=== PATIENT | male | born 1985 | race Caucasian/White ===

== ENCOUNTER 2019-11-22 14:59 | Emergency (ER) | payer SELFPAY ==
--- NOTE | 2019-11-22 16:44 | EDM.PDOC ---
ED HPI GENERAL MEDICAL PROBLEM - General Chief Complaint: Respiratory Problem Stated Complaint: COUGH AND MIGRAINE Time Seen by Provider: 11/22/19 15:01 Source of Information: Reports: Patient History Limitations: Reports: No Limitations - History of Present Illness INITIAL COMMENTS - FREE TEXT/NARRATIVE: HISTORY AND PHYSICAL: History of present illness: Patient is a 34-year-old male who presents to the emergency room with complaints of flulike symptoms, which includes body aches and headache. He states many people at work have been sick with the flu and he had missed yesterday from work because he was not feeling well. He states he is starting to feel better today and "just need a note to return to work". Patient denies any fever, chills, neck pain/stiffness change in vision, syncope or near syncope. Denies any chest pain, back pain, shortness of breath or cough. Denies any GI or symptoms. Patient has been eating and drinking appropriately. Review of systems: As per history of present illness and below otherwise all systems reviewed and negative. Past medical history: As per history of present illness and as reviewed below otherwise noncontributory. Surgical history: As per history of present illness and as reviewed below otherwise noncontributory. Social history: See social history for further information Family history: As per history of present illness and as reviewed below otherwise noncontributory. Physical exam: General: Well-developed and well-nourished 34-year-old male. Alert and oriented. Nontoxic-appearing and in no acute distress. HEENT: Atraumatic, normocephalic, pupils equal and reactive bilaterally, negative for conjunctival pallor or scleral icterus, mucous membranes moist, TMs normal bilaterally, throat clear, neck supple, nontender, trachea midline. No drooling or trismus noted. No meningeal signs. No hot potato voice noted. Lungs: Clear to auscultation, breath sounds equal bilaterally, chest nontender. Heart: S1S2, regular rate and rhythm without overt murmur Abdomen: Soft, nondistended, nontender. Skin: Intact, warm, dry. No lesions or rashes noted. Extremities: Atraumatic, moves all extremities per self without difficulty or deficits, negative for cords or calf pain. Neurovascular unremarkable. Neuro: Awake, alert, oriented. Cranial nerves II through XII unremarkable. Cerebellum unremarkable. Motor and sensory unremarkable throughout. Exam nonfocal. Notes: Patient declines wanting any diagnostics. Physical exam is normal. Supportive care measures were reviewed and discussed. Voices understanding and is agreeable to plan of care. Denies any further questions or concerns at this time. Diagnostics: Declines Therapeutics: None Prescription: None Impression: Viral illness Plan: 1. Please use Tylenol and/or Ibuprofen as needed for pain and fever management. 2. Get plenty of Rest. Encourage fluids to prevent dehydration. 3. Please follow up with your primary care provider. Return to the ED as needed as discussed. Definitive disposition and diagnosis as appropriate pending reevaluation and review of above. - Related Data Allergies Allergy/AdvReac Type Severity Reaction Status Date / Time No Known Allergies Allergy Verified 10/22/18 14:33 Home Meds: Home Meds . [No Known Home Meds] 08/13/16 [History] Past Medical History HEENT History: Reports: None Cardiovascular History: Reports: None Respiratory History: Reports: None Neurological History: Reports: None Psychiatric History: Reports: None Dermatologic History: Reports: None - Infectious Disease History Infectious Disease History: Reports: None - Past Surgical History Head Surgeries/Procedures: Reports: None HEENT Surgical History: Reports: None, Other (See Below) GI Surgical History: Reports: Appendectomy Social & Family History - Family History Family Medical History: Noncontributory - Caffeine Use Caffeine Use: Reports: Coffee, Energy Drinks ED ROS GENERAL - Review of Systems Review Of Systems: Comprehensive ROS is negative, except as noted in HPI. ED EXAM, GENERAL - Physical Exam Exam: See Below (See dictation) Departure - Departure Time of Disposition: 16:43 Disposition: Home, Self-Care 01 Clinical Impression: Viral illness - Discharge Information Instructions: Viral Respiratory Infection, [id number] Referrals: PCP,None [Primary Care Provider] - Forms: ED Department Discharge Additional Instructions: The following information is given to patients seen in the emergency department who are being discharged to home. This information is to outline your options for follow-up care. We provide all patients seen in our emergency department with a follow-up referral. The need for follow-up, as well as the timing and circumstances, are variable depending upon the specifics of your emergency department visit. If you don't have a primary care physician on staff, we will provide you with a referral. We always advise you to contact your personal physician following an emergency department visit to inform them of the circumstance of the visit and for follow-up with them and/or the need for any referrals to a consulting specialist. The emergency department will also refer you to a specialist when appropriate. This referral assures that you have the opportunity for follow-up care with a specialist. All of these measure are taken in an effort to provide you with optimal care, which includes your follow-up. Under all circumstances we always encourage you to contact your private physician who remains a resource for coordinating your care. When calling for follow-up care, please make the office aware that this follow-up is from your recent emergency room visit. If for any reason you are refused follow-up, please contact the [facility] Emergency Department at and asked to speak to the emergency department charge nurse. [facility] [address] [place] [address] [place] [address] 1. Please use Tylenol and/or Ibuprofen as needed for pain and fever management. 2. Get plenty of Rest. Encourage fluids to prevent dehydration. 3. Please follow up with your primary care provider. Return to the ED as needed as discussed. Sepsis Event Note - Focused Exam Date Exam was Performed: 11/22/19 Time Exam was Performed: 16:45
[2019-11-22 17:03] VITALS: BP 122/80; PULSE 106
== END 2019-11-22 16:55 | disposition home or self-care (01) ==
LOC: MW.ED 14:59
DX: B34.9 Viral infection, unspecified (principal); Z90.49 Acquired absence of other specified parts of digestive tract
CPT/HCPCS: 99284

== ENCOUNTER 2020-01-26 21:49 | Emergency (ER) | payer SELFPAY ==
[2020-01-26 22:04] VITALS: BP 117/74; PULSE 108
--- NOTE | 2020-01-26 22:06 | EDM.PDOC ---
ED HPI GENERAL MEDICAL PROBLEM - General Chief Complaint: General Stated Complaint: MEDICAL CLEARANCE Time Seen by Provider: 01/26/20 21:51 Source of Information: Reports: Patient, Police History Limitations: Reports: Intoxication - History of Present Illness INITIAL COMMENTS - FREE TEXT/NARRATIVE: Patient is a 34-year-old male who was picked up by police and brought in by police for being intoxicated. Patient acknowledges drinking "a lot" today. He denies using any other drugs. He is not nauseous is been no vomiting or diarrhea. He denies any headache or head injury or any other trauma. Denies any past medical history. he denies using any other drugs. Patient and please officers have no other concerns. Patient denies any suicidal or homicidal ideation. Onset: Today Associated Symptoms: Reports: No Other Symptoms - Related Data Allergies Allergy/AdvReac Type Severity Reaction Status Date / Time No Known Allergies Allergy Verified 11/22/19 16:45 Home Meds: Home Meds . [No Known Home Meds] 08/13/16 [History] Past Medical History HEENT History: Reports: None Cardiovascular History: Reports: None Respiratory History: Reports: None Neurological History: Reports: None Psychiatric History: Reports: None Dermatologic History: Reports: None - Infectious Disease History Infectious Disease History: Reports: None - Past Surgical History Head Surgeries/Procedures: Reports: None HEENT Surgical History: Reports: None, Other (See Below) GI Surgical History: Reports: Appendectomy Social & Family History - Family History Family Medical History: Noncontributory - Caffeine Use Caffeine Use: Reports: None ED ROS GENERAL - Review of Systems Review Of Systems: Comprehensive ROS is negative, except as noted in HPI. ED EXAM, GENERAL - Physical Exam Exam: See Below Free Text/Narrative:: Exam: See Below Exam Limited By: Intoxication. No Limitations Head: Atraumatic Neck: Normal Inspection. No: Carotid Bruit, Lymphadenopathy Respiratory/Chest: No Respiratory Distress, Lungs Clear, Normal Breath Sounds, No Accessory Muscle Use. No: Chest Non-Tender Cardiovascular: Normal Peripheral Pulses, Regular Rate, Rhythm, No Edema, No JVD GI/Abdominal: Normal Bowel Sounds, Tender. No: Non-Tender, Splenomegaly Back Exam: Normal Inspection. No: CVA Tenderness Extremities: Normal Inspection. No: No Pedal Edema Neurological: Alert, Oriented, Normal Cognition Psychiatric: Normal Affect Skin Exam: Warm Lymphatic: No Adenopathy General Appearance: Alert, No Apparent Distress. No: Lethargic, Obtunded Course - Vital Signs Text/Narrative:: Patient is medically cleared for incarceration. Departure - Departure Time of Disposition: 22:04 Disposition: Home, Self-Care 01 Condition: Good Clinical Impression: Medical clearance for incarceration, Alcohol intoxication - Discharge Information Instructions: Alcohol Use Disorder Referrals: PCP,None [Primary Care Provider] - Additional Instructions: The following information is given to patients seen in the emergency department who are being discharged to home. This information is to outline your options for follow-up care. We provide all patients seen in our emergency department with a follow-up referral. The need for follow-up, as well as the timing and circumstances, are variable depending upon the specifics of your emergency department visit. If you don't have a primary care physician on staff, we will provide you with a referral. We always advise you to contact your personal physician following an emergency department visit to inform them of the circumstance of the visit and for follow-up with them and/or the need for any referrals to a consulting specialist. The emergency department will also refer you to a specialist when appropriate. This referral assures that you have the opportunity for follow-up care with a specialist. All of these measure are taken in an effort to provide you with optimal care, which includes your follow-up. Under all circumstances we always encourage you to contact your private physician who remains a resource for coordinating your care. When calling for follow-up care, please make the office aware that this follow-up is from your recent emergency room visit. If for any reason you are refused follow-up, please contact the [facility] Emergency Department at and asked to speak to the emergency department charge nurse. Care Plan Goals: Drink alcohol only in moderation. Go to Alcoholics Anonymous or detox if indicated. Return to emergency department if symptoms are worse.
== END 2020-01-26 22:15 | disposition home or self-care (01) ==
LOC: MW.ED 21:49
DX: F10.129 Alcohol abuse with intoxication, unspecified (principal)
CPT/HCPCS: 99284

== ENCOUNTER 2020-02-13 11:48 | Emergency (ER) | payer SELFPAY ==
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
== END 2020-02-13 12:40 | disposition left against medical advice (07) ==
LOC: MW.ED 11:48
CPT/HCPCS: 99282; 99283

== ENCOUNTER 2020-04-14 16:27 | Emergency (ER) | payer SELFPAY ==
[2020-04-14] MEDS ORDERED: Sodium Chloride 0.9% 1,000 ML IV ONE (16:30)
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
[2020-04-14 18:30] VITALS: BP 121/91; PULSE 115
== END 2020-04-14 18:17 | disposition home or self-care (01) ==
LOC: MW.ED 16:27
DX: F10.120 Alcohol abuse with intoxication, uncomplicated (principal)
CPT/HCPCS: 96360; 99284; J7030

== ENCOUNTER 2020-06-02 11:27 | Emergency (ER) | payer SELFPAY ==
[2020-06-02 11:48] VITALS: BP 130/97; PULSE 101
[2020-06-02] MEDS ORDERED: Bacitracin Oint 1 GM U/D Packet TOP ONE (11:53)
[2020-06-02] MEDS ORDERED: Diphtheria,Pertussis(Acell),Tetanus Vaccine 0.5 ML Syringe IM ONE (11:53)
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
== END 2020-06-02 12:07 ==
LOC: MW.ED 11:27
DX: L55.9 Sunburn, unspecified (principal); Z91.013 Allergy to seafood
CPT/HCPCS: 82962; 99282; 99283

== ENCOUNTER 2021-04-05 14:40 | Emergency (ER) | payer SELFPAY ==
[2021-04-05 15:22] VITALS: PULSE 90
[2021-04-05] MEDS ORDERED: Ketorolac 60 MG/2 ML SDV IM ONE (15:30)
--- NOTE | 2021-04-05 16:04 | CR ---
For Patients: As a result of the Century Cures Act, medical imaging exams and procedure reports are released immediately into your electronic medical record. You may view this report before your referring provider. If you have questions, please contact your health care provider. Indication: Trauma, pain and fall Comparison: None available. Technique: AP, Lateral, and Oblique views left foot were obtained Findings: There is no displaced fracture or dislocation. Hammertoe deformities of the 2nd through 5th digits are appreciated. Degenerative changes of the proximal interphalangeal joints are appreciated. There is moderate dorsal soft tissue swelling. Impression: There is moderate dorsal soft tissue swelling and minimal degenerative changes of the interphalangeal joints. Incidental note is made of mild to moderate hindfoot edema. Follow-up with dedicated ankle views if there is concern for hindfoot or ankle injury. Dictated by Joshua Portillo MD @ 04/05/2021 4:02:[address] Joshua Portillo @ Apr 05 2021 4:02PM
--- NOTE | 2021-04-05 16:33 | EDM.PDOC ---
ED HPI GENERAL MEDICAL PROBLEM - General Chief Complaint: Lower Extremity Injury/Pain Stated Complaint: LEFT FOOT PAIN Time Seen by Provider: 04/05/21 14:48 Source of Information: Reports: Patient History Limitations: Reports: No Limitations - History of Present Illness INITIAL COMMENTS - FREE TEXT/NARRATIVE: HISTORY AND PHYSICAL: History of present illness: The patient is a 35-year-old male who presents to the emergency room after externally rolling his ankle 3 days ago. The patient states that he has been walking on his foot for 3 days but today the pain became unbearable. The patient treated his ankle with ice or heat for any aqmy-hqv-ltrvmal pain medicine. The patient has never had anything like this before. He states that having his leg elevated as it felt better. Touch or weightbearing increases pain. Patient denies any fever, chills, headache, change in vision, syncope or near syncope. Denies any chest pain, back pain, shortness of breath or cough. Denies any abdominal pain, nausea, vomiting, diarrhea, constipation or dysuria. Has not noted any blood in urine or stool. Patient has been eating and drinking appropriately. Review of systems: As per history of present illness and below otherwise all systems reviewed and negative. Past medical history: As per history of present illness and as reviewed below otherwise noncontributory. Surgical history: As per history of present illness and as reviewed below otherwise noncontributory. Social history: See social history for further information Family history: As per history of present illness and as reviewed below otherwise noncontributory. Physical exam: General: Well developed and well nourished. Alert and orientated x 3. Nontoxic in appearance and in no acute distress. Vital signs are stable and have been reviewed by me. Nursing notes were reviewed. HEENT: Atraumatic, normocephalic, pupils equal and reactive bilaterally, negative for conjunctival pallor or scleral icterus, mucous membranes moist, TMs normal bilaterally, throat clear, neck supple, nontender, trachea midline. No drooling or trismus noted. No meningeal signs. No hot potato voice noted. Lungs: Clear to auscultation bilaterally. No wheezes, rales, or rhonchi. Chest nontender. Normal work of breathing, no accessory muscles used. Heart: S1S2, regular rate and rhythm without overt murmur, gallops, or rubs. No JVD. No peripheral edema Abdomen: Soft, nondistended, nontender. Normoactive bowel sounds. Negative for masses or costovertebral tenderness. Skin: Intact, warm, dry. Left foot with purple discoloration lateral area and on all 5 toes. No open area noted. No blisters noted Hematologic: No petechiae or purpra. Mucosa appropriate color and normal nail bed color and refill. Extremities: Left foot edematous with bruising. Tender to touch. Moves all other extremities per self without difficulty or deficits, negative for cords or calf pain. Neurovascular unremarkable. Neuro: Awake, alert, oriented. Cranial nerves II through XII unremarkable. Cerebellum unremarkable. Motor and sensory unremarkable throughout. Exam nonfocal. Psychiatric: Mood and affect are appropriate. Normal thought process. Answering questions appropriately. Notes: *This patient was seen and evaluated during the 2019 SARS-CoV-2 novel coronavirus pandemic period. Community viral transmission is ongoing at time of this encounter and the emergency department is operating under pandemic response procedures. Stated above the patient presents to the emergency room with complaints of left foot/ankle pain after rolling his ankle externally 3 days ago. Over the 3 days the pain has been progressively worse. I will get a foot and ankle x-ray. I will treat his pain with Toradol injection. Left foot x-ray radiologist impression:There is moderate dorsal soft tissue swelling and minimal degenerative changes of the interphalangeal joints. Incidental note is made of mild to moderate hindfoot edema. Follow-up with dedicated ankle views if there is concern for hindfoot or ankle injury. Left ankle x-ray per radiologist:mild lateral soft tissue swelling. No acute fracture or subluxation. I have ordered a ankle stirrup for the patient to wear for 7 days or until ankle feels better. I explained the results to the patient and he has opted for the ankle stirrup and to go back to work. He states he just 1 to make sure it was not broken. I have talked with the patient about today's findings, in addition to providing specific details for plan of care. Reassessment at the time of disposition demonstrates that the patient is in no acute distress. The patient is stable for discharge, counseling was provided and we discussed in great detail signs and symptoms that would prompt them to return to the Emergency Department. Medication, follow up and supportive care measures were reviewed and discussed. Voices understanding and is agreeable to plan of care. Denies any further questions or concerns at this time. Diagnostics: Left foot and ankle x-ray Therapeutics: Toradol 60 IM, Aircast ankle stirrup for left ankle for joint stabilization and comfort for the patient to wear for 7 days or until the ankle feels better. Impression: Left ankle sprain Plan: 1. You were evaluated today on an emergent basis. Your left ankle pain and discoloration was evaluated by x-rays were negative for fracture. You have sprained your ankle. You will need to wear the Aircast ankle stirrup for 7 days or until your ankle feels better. If needed you can follow-up with your primary care provider. You can return to work today. Use Motrin 800 mg every 8 hours for pain. You can apply ice or heat at this point whichever one feels better. 2. You can alternate Tylenol and ibuprofen as needed for pain and fever m anagement. 3. We encourage you to follow up with your primary care provider and/or recommended specialist in the next few days for re-evaluation and further care/management. 4. If your symptoms should worsen, new symptoms develop or any of the signs and symptoms we discussed should arise please return to the emergency room or call 911 (if needed). Definitive disposition and diagnosis as appropriate pending reevaluation and review of above. Left ankle Pain Score (Numeric/FACES): 7 - Related Data Allergies Allergy/AdvReac Type Severity Reaction Status Date / Time shellfish derived Allergy Other Verified 04/05/21 15:18 Home Meds: Home Meds . [No Known Home Meds] 08/13/16 [History] Past Medical History HEENT History: Reports: None Cardiovascular History: Reports: None Respiratory History: Reports: None Neurological History: Reports: None Psychiatric History: Reports: None Other Psychiatric History: unable to assess Other Hematologic History: unable to assess Other Immunologic History: unable to assess Dermatologic History: Reports: None - Infectious Disease History Infectious Disease History: Reports: None Other Infectious Disease History: unknown - Past Surgical History Head Surgeries/Procedures: Reports: None HEENT Surgical History: Reports: None, Other (See Below) GI Surgical History: Reports: Appendectomy Social & Family History - Family History Family Medical History: No Pertinent Family History Other Dermatologic Family History: unable to assess - Tobacco Use Tobacco Use Status *Q: Never Tobacco User - Caffeine Use Caffeine Use: Reports: None Other Caffeine Use: unknown Caffeine Use Comment: unable to assess - Recreational Drug Use Recreational Drug Use: No Review of Systems - Review of Systems Review Of Systems: Comprehensive ROS is negative, except as noted in HPI. ED EXAM, GENERAL - Physical Exam Exam: See Below Course - Vital Signs Last Recorded V/S: Last Vital Signs Temp 97.6 F 04/05/21 15:18 Pulse 90 04/05/21 15:18 Resp 17 04/05/21 15:18 BP 120/80 04/05/21 17:30 Pulse Ox 98 04/05/21 15:18 - Orders/Labs/Meds Orders: Active Orders 24 hr Category Date Time Status DME for Discharge [COMM] Stat Oth 04/05/21 17:02 Ordered Meds: Medications Discontinued Medications Generic Name Dose Route Start Last Admin Trade Name Freq PRN Reason Stop Dose Admin Ketorolac Tromethamine 60 mg 04/05/21 15:30 04/05/21 16:25 Ketorolac 60 Mg/2 Ml Sdv IM 04/05/21 15:31 60 mg ONETIME ONE Administration Departure - Departure Time of Disposition: 17:06 Disposition: Home, Self-Care 01 Condition: Good Clinical Impression: Ankle sprain Qualifiers: Encounter type: initial encounter Involved ligament of ankle: anterior talofibular ligament Laterality: left Qualified Code(s): S93.492A - Sprain of other ligament of left ankle, initial encounter - Discharge Information *PRESCRIPTION DRUG MONITORING PROGRAM REVIEWED*: Not Applicable *COPY OF PRESCRIPTION DRUG MONITORING REPORT IN PATIENT ZOEY: Not Applicable Instructions: Ankle Sprain, [id number] Referrals: PCP,None [Primary Care Provider] - Forms: ED Department Discharge Additional Instructions: The following information is given to patients seen in the emergency department who are being discharged to home. This information is to outline your options for follow-up care. We provide all patients seen in our emergency department with a follow-up referral. The need for follow-up, as well as the timing and circumstances, are variable depending upon the specifics of your emergency department visit. If you don't have a primary care physician on staff, we will provide you with a referral. We always advise you to contact your personal physician following an emergency department visit to inform them of the circumstance of the visit and for follow-up with them and/or the need for any referrals to a consulting specialist. The emergency department will also refer you to a specialist when appropriate. This referral assures that you have the opportunity for follow-up care with a specialist. All of these measure are taken in an effort to provide you with optimal care, which includes your follow-up. Under all circumstances we always encourage you to contact your private physician who remains a resource for coordinating your care. When calling for follow-up care, please make the office aware that this follow-up is from your recent emergency room visit. If for any reason you are refused follow-up, please contact the [facility] Emergency Department at and asked to speak to the emergency department charge nurse. [facility] - Primary Care [address] [place] [id number] [facility] [address] [place] [id number] Plan: 1. You were evaluated today on an emergent basis. Your left ankle pain and discoloration was evaluated by x-rays were negative for fracture. You have sprained your ankle. You will need to wear the Aircast ankle stirrup for 7 days or until your ankle feels better. If needed you can follow-up with your primary care provider. You can return to work today. Use Motrin 800 mg every 8 hours for pain. You can apply ice or heat at this point whichever one feels better. 2. You can alternate Tylenol and ibuprofen as needed for pain and fever management. 3. We encourage you to follow up with your primary care provider and/or recommended specialist in the next few days for re-evaluation and further care/management. 4. If your symptoms should worsen, new symptoms develop or any of the signs and symptoms we discussed should arise please return to the emergency room or call 911 (if needed). Sepsis Event Note (ED) - Evaluation Sepsis Screening Result: No Definite Risk - Focused Exam Vital Signs: Vital Signs Temp Pulse Resp BP Pulse Ox 04/05/21 17:30 120/80 04/05/21 15:18 97.6 F 90 17 125/82 98 - My Orders Last 24 Hours: My Active Orders 04/05/21 17:02 DME for Discharge [COMM] Stat - Assessment/Plan Last 24 Hours: My Active Orders 04/05/21 17:02 DME for Discharge [COMM] Stat
--- NOTE | 2021-04-05 17:00 | CR ---
For Patients: As a result of the Century Cures Act, medical imaging exams and procedure reports are released immediately into your electronic medical record. You may view this report before your referring provider. If you have questions, please contact your health care provider. Indication: Rolled ankle, pain and swelling Technique: Three views left ankle Comparison: None Findings: Bones: Alignment is normal. No fractures or bone lesions. Joint spaces: Unremarkable. Soft tissues: Mild lateral soft tissue swelling. Impression: Mild lateral soft tissue swelling. No acute fracture or subluxation. Dictated by Dina Talley MD @ 04/05/2021 4:58:[address] Dina Talley @ Apr 05 2021 4:58PM
[2021-04-05 17:31] VITALS: BP 120/80
== END 2021-04-05 17:33 | disposition home or self-care (01) ==
LOC: MW.ED 14:40
DX: S93.492A Sprain of other ligament of left ankle, initial encounter (principal); Z91.013 Allergy to seafood; X50.1XXA Overexertion from prolonged static or awkward postures, initial encounter
CPT/HCPCS: 73610; 73630; 96372; 99283; J1885

== ENCOUNTER 2021-10-06 12:22 | Emergency (ER) | payer SELFPAY ==
[2021-10-06] MEDS ORDERED: cefTRIAXone 500 MG in Lidocaine 1% 1 ML IM ONE (14:05)
[2021-10-06] MEDS ORDERED: Ketorolac 60 MG/2 ML SDV IM ONE (14:08)
--- NOTE | 2021-10-06 16:03 | EDM.PDOC ---
ED HPI GENERAL MEDICAL PROBLEM - General Chief Complaint: Genitourinary Problem Stated Complaint: SWOLLEN LFT TESTICAL Time Seen by Provider: 10/06/21 12:44 Source of Information: Reports: Patient History Limitations: Reports: No Limitations - History of Present Illness INITIAL COMMENTS - FREE TEXT/NARRATIVE: HISTORY AND PHYSICAL: History of present illness: Patient is a 36-year-old male who presents emergency room today with concern of left testicular pain and swelling x2 days. Patient states that initially it started swelling and then became more painful yesterday. Patient states that the pain is now radiating down his leg and up into his abdomen but states that it is all localized in the testicle. Patient states that he is in a monogamous relationship and is been in the same relationship for 3 years and does not believe to have a sexually transmitted infection. Patient denies any other symptoms or concerns. Patient denies fever, chills, chest pain, shortness of breath, or cough. Denies headache, neck stiff ness, change in vision, syncope, or near syncope. Denies nausea, vomiting, abdominal pain, diarrhea, constipation, or dysuria. Has not noted any blood in urine or stool. Patient has been eating and drinking appropriately. Review of systems: As per history of present illness and below otherwise all systems reviewed and negative. Past medical history: As per history of present illness and as reviewed below otherwise noncontributory. Surgical history: As per history of present illness and as reviewed below otherwise noncontributory. Social history: See social history for further information Family history: As per history of present illness and as reviewed below otherwise noncontributory. Physical exam: General: Patient is alert, oriented, and in no acute distress. Patient sitting comfortably on exam table. HEENT: Atraumatic, normocephalic, pupils equal and reactive bilaterally, negative for conjunctival pallor or scleral icterus, mucous membranes moist, throat clear, neck supple, nontender, trachea midline. No drooling or trismus noted. No meningeal signs. No hot potato voice noted. Lungs: Clear to auscultation, breath sounds equal bilaterally, chest nontender. Heart: S1S2, regular rate and rhythm without overt murmur Abdomen: Soft, nondistended, nontender. Negative for masses or hepatosplenomegaly. Negative for costovertebral tenderness. Pelvis: Stable nontender. Genitourinary: [employer] Bailiff at bedside Isabel Esparza RN. The left testicle is moderately edematous and painful to palpation diffusely in comparison to the right. The left testicle is also more firm. No penile drainage. No rashes, lesions or hernia. Rectal: Deferred. Skin: Intact, warm, dry. No lesions or rashes noted. Extremities: Atraumatic, negative for cords or calf pain. Neurovascular unremarkable. Neuro: Awake, alert, oriented. Cranial nerves II through XII unremarkable. Cerebellum unremarkable. Motor and sensory unremarkable throughout. Exam nonfocal. Medical Decision Making: Patient is a 36-year-old male who presents emergency room today with concern of left testicular pain and swelling x2 days. Upon arrival to the ED, patient is vitally stable and well-appearing on exam. Examination of the testicles do show that the left testicle is moderately more edematous than the right and painful diffusely to palpation. Will obtain urinalysis, gonorrhea and chlamydia, and ultrasound of the testicles. Will also provide a dose of Rocephin with plan to send on doxycycline for presumed orchitis, will follow diagnostics. Urinalysis does show 30 protein, positive leukocyte esterase with 30-40 white blood cells. 1-2 red blood cells, and few bacteria. Scrotal ultrasound shows findings of left epididymal-orchitis with moderate left hydrocele. On reevaluation of patient, he remains vitally stable and has improvement of his discomfort with therapeutics today in the emergency room. I did have a further discussion with patient and him and his girlfriend both agree that they have been not been monogamous for 3 years and are not concerned of sexually transmitted infection. They also declined any anal intercourse. Because of this unclear possible etiology of orchitis, I will treat with both doxycycline and Cipro. Pending gonorrhea and chlamydia and urine culture. Strict return precautions thoroughly discussed with patient. Discussed importance for follow-up with urologist and his primary care provider. Voices understanding and is agreeable to plan of care. Denies any further questions or concerns at this time. Diagnostics: UA, gonorrhea and chlamydia, scrotum and contents ultrasound Therapeutics: Rocephin IM, Toradol IM Prescription: Doxycycline Impression: Orchitis, left Plan: 1. Take medication as prescribed. [facility]. 2. You can take Tylenol as directed for pain and discomfort. Take diclofenac as prescribed. Do not take this medication with any additional NSAID medication such as ibuprofen, naproxen, or aspirin as discussed. Caution when taking tramadol as this medication does cause drowsiness and sedation. Do not take this medication and drive a vehicle or operate any heavy equipment. Caution when taking this medication outside of the home. 3. Refrain from sexual activity until symptoms have completely resolved and testing from today has returned as discussed. Return to the ED as needed and as discussed. 4. Follow-up with your primary care provider and urology as discussed. Definitive disposition and diagnosis as appropriate pending reevaluation and review of above. Left Groin Pain Score (Numeric/FACES): 6 - Related Data Allergies Allergy/AdvReac Type Severity Reaction Status Date / Time shellfish derived Allergy Other Verified 10/06/21 13:12 Home Meds: Home Meds Diclofenac Sodium [Voltaren] 75 mg PO BIDMEALS PRN #15 tab.cr 10/06/21 [Rx] Doxycycline [Vibramycin] 100 mg PO BID 14 Days #20 cap 10/06/21 [Rx] Levofloxacin 500 mg PO DAILY 10 Days #10 tablet 10/06/21 [Rx] traMADol [Ultram] 50 mg PO Q6H PRN #6 tab 10/06/21 [Rx] Past Medical History HEENT History: Reports: None Cardiovascular History: Reports: None Respiratory History: Reports: None Neurological History: Reports: None Psychiatric History: Reports: None Other Psychiatric History: unable to assess Other Hematologic History: unable to assess Other Immunologic History: unable to assess Dermatologic History: Reports: None - Infectious Disease History Infectious Disease History: Reports: None Other Infectious Disease History: unknown - Past Surgical History Head Surgeries/Procedures: Reports: None HEENT Surgical History: Reports: None, Other (See Below) Other HEENT Surgeries/Procedures: unable to assess Other Cardiovascular Surgeries/Procedures: unable to assess Other Respiratory Surgeries/Procedures: unable to assess GI Surgical History: Reports: Appendectomy Other GI Surgeries/Procedures: unable to assess Other Male Surgeries/Procedures: unable to assess Other Endocrine Surgeries/Procedures: unable to assess Other Neurological Surgeries/Procedures: unable to assess Other Musculoskeletal Surgeries/Procedures:: unable to assess Other Oncologic Surgeries/Procedures: unable to assess Social & Family History - Family History Family Medical History: No Pertinent Family History Other Dermatologic Family History: unable to assess - Caffeine Use Caffeine Use: Reports: None Other Caffeine Use: unknown Caffeine Use Comment: unable to assess - Recreational Drug Use Recreational Drug Use: Yes Recreational Drug Type: Reports: Marijuana/Hashish ED ROS GENERAL - Review of Systems Review Of Systems: Comprehensive ROS is negative, except as noted in HPI. ED EXAM, GENERAL - Physical Exam Exam: See Below (see dictation) Course - Vital Signs Last Recorded V/S: Last Vital Signs Temp 96.7 F L 10/06/21 13:13 Pulse 87 10/06/21 13:13 Resp 16 10/06/21 13:13 BP 126/84 10/06/21 13:13 Pulse Ox 96 10/06/21 13:13 - Orders/Labs/Meds Orders: Active Orders 24 hr Category Date Time Status Scrotal Duplex Ltd [US] Routine Exams 10/06/21 14:50 Taken CHLAMYDIA AND GONORRHEA BY [facility] Stat Lab 10/06/21 13:40 Received CULTURE URINE [MREF] Stat Lab 10/06/21 13:40 Received Labs: Laboratory Tests 10/06/21 Range/Units 13:40 Urine Color YELLOW Urine Appearance SLT CLOUDY Urine pH 6.5 (5.0-8.0) Ur Specific [place] 1.020 (1.001-1.035) Urine Protein 30 H (NEGATIVE) mg/dL Urine Glucose (UA) NEGATIVE (NEGATIVE) mg/dL Urine Ketones TRACE H (NEGATIVE) mg/dL Urine Occult Blood NEGATIVE (NEGATIVE) Urine Nitrite NEGATIVE (NEGATIVE) Urine Bilirubin NEGATIVE (NEGATIVE) Urine Urobilinogen 0.2 (<2.0) EU/dL Ur Leukocyte Esterase SMALL H (NEGATIVE) Urine RBC 1-2 (0-2/HPF) Urine WBC 30-40 (0-5/HPF) Ur Epithelial Cells RARE (NONE-FEW) Urine Bacteria FEW (NEGATIVE) Urine Mucus MODERATE (NONE-MOD) Meds: Medications Discontinued Medications Generic Name Dose Route Start Last Admin Trade Name Freq PRN Reason Stop Dose Admin Ceftriaxone Sodium 500 mg/ 1 mls @ 1 mls/sec 10/06/21 14:05 10/06/21 15:42 Lidocaine HCl IM 10/06/21 14:06 1 mls/sec ONETIME ONE Administration Ketorolac Tromethamine 60 mg 10/06/21 14:08 10/06/21 15:42 Ketorolac 60 Mg/2 Ml Sdv IM 10/06/21 14:09 60 mg ONETIME ONE Administration Departure - Departure Time of Disposition: 16:10 Disposition: Home, Self-Care 01 Clinical Impression: Orchitis - Discharge Information Prescriptions: Levofloxacin 500 mg PO DAILY 10 Days #10 tablet traMADol [Ultram] 50 mg PO Q6H PRN #6 tab PRN Reason: Pain (Severe 7-10) Doxycycline [Vibramycin] 100 mg PO BID 14 Days #20 cap Diclofenac Sodium [Voltaren] 75 mg PO BIDMEALS PRN #15 tab.cr PRN Reason: Pain Instructions: Scrotal Masses, Orchitis Referrals: PCP,None [Primary Care Provider] - Forms: ED Department Discharge Additional Instructions: The following information is given to patients seen in the emergency department who are being discharged to home. This information is to outline your options for follow-up care. We provide all patients seen in our emergency department with a follow-up referral. The need for follow-up, as well as the timing and circumstances, are variable depending upon the specifics of your emergency department visit. If you don't have a primary care physician on staff, we will provide you with a referral. We always advise you to contact your personal physician following an emergency department visit to inform them of the circumstance of the visit and for follow-up with them and/or the need for any referrals to a consulting specialist. The emergency department will also refer you to a specialist when appropriate. This referral assures that you have the opportunity for follow-up care with a specialist. All of these measure are taken in an effort to provide you with optimal care, which includes your follow-up. Under all circumstances we always encourage you to contact your private physician who remains a resource for coordinating your care. When calling for follow-up care, please make the office aware that this follow-up is from your recent emergency room visit. If for any reason you are refused follow-up, please contact the [facility] Emergency Department at and asked to speak to the emergency department charge nurse. [facility] [address] [place] [address] [address] 1. Take medication as prescribed. [facility] been [facility]. 2. You can take Tylenol as directed for pain and discomfort. Take diclofenac as prescribed. Do not take this medication with any additional NSAID medication such as ibuprofen, naproxen, or aspirin as discussed. Caution when taking tramadol as this medication does cause drowsiness and sedation. Do not take this medication and drive a vehicle or operate any heavy equipment. Caution when taking this medication outside of the home. 3. Refrain from sexual activity until symptoms have completely resolved and testing from today has returned as discussed. Return to the ED as needed and as discussed. 4. Follow-up with your primary care provider and urology as discussed. Sepsis Event Note (ED) - Evaluation Sepsis Screening Result: No Definite Risk - Focused Exam Vital Signs: Vital Signs Temp Pulse Resp BP Pulse Ox 10/06/21 13:13 96.7 F L 87 16 126/84 96 - My Orders Last 24 Hours: My Active Orders 10/06/21 13:40 CHLAMYDIA AND GONORRHEA BY [facility]MA Stat CULTURE URINE [MREF] Stat - Assessment/Plan Last 24 Hours: My Active Orders 10/06/21 13:40 CHLAMYDIA AND GONORRHEA BY [facility]MA Stat CULTURE URINE [MREF] Stat
--- NOTE | 2021-10-06 16:05 | US ---
INDICATION: Left testicular pain and edema for 2 days. COMPARISON: None available. FINDINGS: Ultrasound examination of the testes was performed with a high-resolution linear transducer. There is diffusely increased color Doppler flow throughout the left testis. There is a moderate hydrocele on the left. The left epididymis is mildly enlarged with increased color Doppler flow. The findings are consistent with left epididymo-orchitis. Incidental note is made of an appendix epididymis without hyperemia. The right testis has normal uniform color Doppler flow. The testes are otherwise normal in appearance, with smooth margins and uniform internal echogenicity. The right testis measures 5.6 x 2.6 x 3.4 cm and the left measures 5.4 x 3.2 x 3.6 cm. The right epididymis is normal in appearance. There is no sign of a hydrocele on the right. No extra-testicular masses are seen. IMPRESSION: Findings of left epididymo-orchitis. Moderate left hydrocele. Dictated by Lex Jamison MD @ 10/06/2021 4:03:56 PM (Electronically Signed)
[2021-10-06 16:33] VITALS: BP 128/82; PULSE 78
--- NOTE | 2021-10-07 13:31 | US ---
EXAM DATE: 10/06/21 PATIENT'S AGE: 36 Patient: GIOVANNY NATION Facility[facility] 1985 Study: US-Testicle -10/06/2021 3:34:56 PM Ordering Physician: Montse Mtz Final Report: INDICATION: Left testicular pain and edema for 2 days. COMPARISON: None available. FINDINGS: Ultrasound examination of the testes was performed with a high-resolution linear transducer. There is diffusely increased color Doppler flow throughout the left testis. There is a moderate hydrocele on the left. The left epididymis is mildly enlarged with increased color Doppler flow. The findings are consistent with left epididymo-orchitis. Incidental note is made of an appendix epididymis without hyperemia. The right testis has normal uniform color Doppler flow. The testes are otherwise normal in appearance, with smooth margins and uniform internal echogenicity. The right testis measures 5.6 x 2.6 x 3.4 cm and the left measures 5.4 x 3.2 x 3.6 cm. The right epididymis is normal in appearance. There is no sign of a hydrocele on the right. No extra-testicular masses are seen. IMPRESSION: Findings of left epididymo-orchitis. Moderate left hydrocele. Dictated by Lex Jamison MD @ 10/06/2021 4:03:56 PM Signed by: Lex Jamison MD @10/06/2021 4:03:56 PM (Electronic Signature) Report Signed by Proxy. ADALI
[2021-10-08 13:07] LABS: C.TRACHOMATIS BY TMA Negative (Negative); N.GONORRHOEAE BY TMA Positive (Negative)
== END 2021-10-06 16:33 | disposition home or self-care (01) ==
LOC: MW.ED 12:22
DX: N45.2 Orchitis (principal); Z91.013 Allergy to seafood
CPT/HCPCS: 76870; 81001; 87086; 87491; 87591; 93976; 96372; 99284; J0696; J1885

== ENCOUNTER 2022-01-20 08:14 | Emergency (ER) | payer SELFPAY ==
[2022-01-20] MEDS ORDERED: EPINEPHrine/Lidocaine/Tetracai Topical Gel 3 ML TOP ONE (08:28)
[2022-01-20 18:08] VITALS: BP 113/76; PULSE 89
== END 2022-01-20 11:35 | disposition home or self-care (01) ==
LOC: MW.ED 08:14
DX: S01.01XA Laceration without foreign body of scalp, initial encounter (principal); W22.8XXA Striking against or struck by other objects, initial encounter; W25.XXXA Contact with sharp glass, initial encounter
CPT/HCPCS: 12004; 70250; 70250-26; 99283-25

== ENCOUNTER 2022-01-31 09:02 | Emergency (ER) | payer SELFPAY ==
[2022-01-31 09:13] VITALS: BP 131/82; PULSE 88
== END 2022-01-31 09:21 | disposition home or self-care (01) ==
LOC: MW.ED 09:02
DX: S01.01XD Laceration without foreign body of scalp, subsequent encounter (principal); Z48.02 Encounter for removal of sutures
CPT/HCPCS: 99281

== ENCOUNTER 2024-01-19 01:42 | Emergency (ER) | payer SELFPAY ==
[2024-01-19 02:09] VITALS: BP 120/69; PULSE 96
== END 2024-01-19 02:20 ==
LOC: MW.ED 01:42
DX: F10.120 Alcohol abuse with intoxication, uncomplicated (principal); Z75.8 Other problems related to medical facilities and other health care; Y90.9 Presence of alcohol in blood, level not specified
CPT/HCPCS: 82947; 99283

== ENCOUNTER 2024-04-26 16:17 | Emergency (ER) | payer SELFPAY ==
[2024-04-27 00:54] VITALS: BP 129/86; PULSE 87
== END 2024-04-26 19:45 | disposition home or self-care (01) ==
LOC: MW.ED 16:17
DX: S92.001A Unspecified fracture of right calcaneus, initial encounter for closed fracture (principal); F17.210 Nicotine dependence, cigarettes, uncomplicated; Z90.49 Acquired absence of other specified parts of digestive tract; Z75.8 Other problems related to medical facilities and other health care; X50.1XXA Overexertion from prolonged static or awkward postures, initial encounter
CPT/HCPCS: 73610-26-RT; 73610-RT; 73630-26-RT; 73630-RT; 99283

== ENCOUNTER 2024-05-21 20:28 | Emergency (ER) | payer SELFPAY ==
[2024-05-21 21:19] VITALS: BP 122/81; PULSE 118
== END 2024-05-21 21:34 | disposition home or self-care (01) ==
LOC: MW.ED 20:28
DX: F10.129 Alcohol abuse with intoxication, unspecified (principal); Z02.89 Encounter for other administrative examinations; Z75.8 Other problems related to medical facilities and other health care
CPT/HCPCS: 99283

== ENCOUNTER 2025-03-04 22:19 | Emergency (ER) | payer SELFPAY ==
[2025-03-04 22:33] VITALS: BP 130/89; PULSE 107
[2025-03-04 22:47] LABS: BASOPHILS ABSOLUTE AUTO 0.05 K/uL (0.00-0.20); BASOPHILS PERCENT AUTO 0.4 % (0.0-1.0); EOSINOPHILS ABSOLUTE AUTO 0.01 K/uL (0.00-0.45); EOSINOPHILS PERCENT AUTO 0.1 % (0.0-6.0); HEMATOCRIT 41.7 % (42.0-52.0); HEMOGLOBIN 14.6 g/dL (14.0-18.0); IMMATURE GRAN ABSOLUTE AUTO 0.06 K/uL (0.00-0.05); IMMATURE GRAN PERCENT AUTO 0.5 % (0.0-0.4); LYMPHOCYTES ABSOLUTE AUTO 1.54 K/uL (1.00-4.80); LYMPHOCYTES PERCENT AUTO 12.6 % (24.0-44.0); MEAN CORPUSCULAR HEMOGLOBIN 31.2 pg (28.0-32.0); MEAN CORPUSCULAR VOLUME 89.1 fL (83.0-99.0); MEAN PLATELET VOLUME 9.8 fL (9.4-12.4); MONOCYTES ABSOLUTE AUTO 0.29 K/uL (0.00-0.80); MONOCYTES PERCENT AUTO 2.4 % (0.0-8.0); PLATELET COUNT,PLT 211 K/uL (150-400); RED BLOOD CELL COUNT 4.68 M/uL (4.52-5.90); WHITE BLOOD CELL COUNT,WBC 12.25 K/uL (3.9-11.3)
[2025-03-04 23:11] LABS: A/G RATIO 1.3 (0.9-1.6); ALBUMIN 4.3 g/dL (3.4-5.0); BILIRUBIN TOTAL 0.5 mg/dL (0.2-1.0); CALCIUM 8.5 mg/dL (8.5-10.1); CARBON DIOXIDE,CO2 25.4 mmol/L (21.0-32.0); CREATININE 1.1 mg/dL (0.8-1.3); EST CRCL DRUG DOSING (CG) 102.74 mL/min; POTASSIUM,K 3.4 mmol/L (3.5-5.1); PROTEIN TOTAL,TP 7.6 g/dL (6.4-8.2)
== END 2025-03-05 ==
LOC: MW.ED 22:19
DX: Z02.89 Encounter for other administrative examinations (principal); F10.920 Alcohol use, unspecified with intoxication, uncomplicated; Z90.49 Acquired absence of other specified parts of digestive tract
CPT/HCPCS: 36415; 80053; 80307; 83735; 85025; 99283; 99284